=== PATIENT | male | born 1955 | race Caucasian/White ===

== ENCOUNTER 2017-11-25 14:10 | Emergency (ER) | payer BC ==
[~2017-11-25] VITALS: Ht 170.2 cm; Wt 80.5 kg
[2017-11-25 14:15] VITALS: TEMP 100.1
[2017-11-25] MEDS ORDERED: DOXYCYCLINE 10100 MG PO (16:07)
[2017-11-25] MEDS ORDERED: FLOMAX 0.40.4 MG/CAP PO (16:08)
[2017-11-25] MEDS ORDERED: COUMADIN 1010 MG/TAB PO (16:08)
[2017-11-25] MEDS ORDERED: LASIX 20MG TABL20 MG PO (16:08)
[2017-11-25] MEDS ORDERED: ZOCOR 20MG20 MG PO (16:08)
[2017-11-25] MEDS ORDERED: PRINIVIL5 MG PO (16:09)
[2017-11-25] MEDS ORDERED: EFFEXOR XR75 MG/CAP PO (16:09)
[2017-11-25] MEDS ORDERED: DIGITEK0.25 MG PO (16:09)
[2017-11-25] MEDS ORDERED: COREG 3.123.125 MG/T PO (16:09)
[2017-11-25] MEDS ORDERED: K-DUR20 MEQ PO (16:10)
[2017-11-25] MEDS ORDERED: GLUMETZA1000 MG PO (16:10)
[2017-11-25 16:14] LABS: BASO % 0.3 % (0.0-2.0); EOS # 0.4 (0.0-0.7); EOS % 3.8 % (0-4.0); GRAN % 61.8 % (42.2-75.2); HEMATOCRIT 36.7 % (42.0-52.0); HEMOGLOBIN 11.6 g/dl (13.5-18.0); LYMPH # 2.5 (1.2-3.4); LYMPH % 21.7 % (20.0-51.0); MEAN CELL VOLUME 77 fl (80.0-100.0); MEAN CORPUSCULAR HEMOGLOBIN 24 pg (27.0-31.0); MEAN CORPUSCULAR HGB CONC 32 g/dl (33.0-37.0); MEAN PLATELET VOLUME 10.2 fl (7.4-10.4); MONO # 1.4 (0.1-0.6); PLATELET COUNT 259 K/mm3 (130-400); RED BLOOD COUNT 4.77 M/mm3 (4.20-5.60); REDCELL DISTRIBUTION WIDTH-CV 14.9 % (11.5-14.5)
[2017-11-25 16:21] LABS: INR 2.4 (0.8-3.0); PROTHROMBIN TIME 27.8 SECONDS (9.7-12.8)
[2017-11-25 16:30] LABS: ALBUMIN 4.1 gm/dL (3.5-5.0); BILIRUBIN,TOTAL 0.3 mg/dL (0.0-1.0); CALCIUM 8.9 mg/dL (8.4-10.2); CREATININE, serum 0.85 mg/dL (0.66-1.25); POTASSIUM 4.1 mmol/L (3.4-5.0); TOTAL PROTEIN 7.2 gm/dL (6.4-8.2)
[2017-11-25] MEDS ORDERED: ULTRAM 50MG TAB50 MG PO (16:40)
[2017-11-25] MEDS ORDERED: MOTRIN 800800 MG/TAB PO (16:40)
[2017-11-25] MEDS ORDERED: CLEOCIN HCL300 MG PO (18:11)
[2017-11-25] MEDS ORDERED: NORCO 325 MG-51 TAB PO (18:11)
[2017-11-25] MEDS ORDERED: ZOFRAN 4MG T4 MG/TAB PO (18:11)
[2017-11-25 19:27] VITALS: BP 161/84; PULSE 87
== END 2017-11-25 19:28 | disposition home or self-care (01) ==
LOC: COL.ER 14:10
PROVIDERS: Emergency Medicine
DX: K04.7 Periapical abscess without sinus (principal); E11.9 Type 2 diabetes mellitus without complications; Z79.01 Long term (current) use of anticoagulants; Z79.84 Long term (current) use of oral hypoglycemic drugs; Z79.1 Long term (current) use of non-steroidal anti-inflammatories (NSAID)
CPT/HCPCS: J1170; J2405; J7030